=== PATIENT | male | born 1955 | race Caucasian/White ===

== ENCOUNTER 2016-05-02 10:13 | Day surgery (SDC) | payer MEDICARE ==
[2016-04-27 09:36] LABS: HEMATOCRIT 40.1 % (37.9-51.0); HEMOGLOBIN 13.7 g/dL (13.5-17.0); MEAN CORPUSCULAR HEMOGLOBIN 30.9 pg (27.0-33.4); MEAN CORPUSCULAR HGB CONC 34.1 g/dL (32.0-36.0); MEAN CORPUSCULAR VOLUME 91 fl (80-97); RED BLOOD COUNT 4.43 10^6/uL (4.35-5.55); RED CELL DISTRIBUTION WIDTH 13.1 % (11.5-14.0); WHITE BLOOD COUNT 6.1 10^3/uL (4.0-10.5)
[2016-04-27 09:58] LABS: ALANINE AMINOTRANSFERASE 44 U/L (21-72); ALBUMIN 3.9 g/dL (3.5-5.0); ALKALINE PHOSPHATASE 56 U/L (38-126); ANION GAP 12 (5-19); ASPARTATE AMINO TRANSFERASE 23 U/L (17-59); BILIRUBIN,TOTAL 0.4 mg/dL (0.2-1.3); BLOOD UREA NITROGEN 18 mg/dL (7-20); CALCIUM 9.9 mg/dL (8.4-10.2); CARBON DIOXIDE 26 mmol/L (22-30); CHLORIDE 102 mmol/L (98-107); CREATININE RESULT 0.83 mg/dL (0.52-1.25); GLUCOSE 109 mg/dL (75-110); POTASSIUM 4.8 mmol/L (3.6-5.0); SODIUM 140.4 mmol/L (137-145); TOTAL PROTEIN 6.3 g/dL (6.3-8.2)
--- NOTE | 2016-04-27 12:52 | EKG REPORT ---
SEVERITY:- ABNORMAL ECG - SINUS RHYTHM : Confirmed by: Luis Alberto Mera MD 27-Apr-2016 12:52:06
[~2016-05-02 10:13] MED LIST: CEFAZOLIN SODIUM 1 GM in DEXTROSE 5%-WATER 50 ML IV PRN; LACTATED RINGERS 1000 ML IV PRN; LIDOCAINE 0.5% INJ-PF (5 MG/ML) 50 ML SDV SUBCUT PRN
[2016-05-02] MEDS ORDERED: BUPIVACAINE HCL 0.25 % INJ/PF (2.5 MG/1 ML) 30 ML VIAL ONE (11:24)
[2016-05-02] MEDS ORDERED: ONDANSETRON HCL INJ/PF 4 MG/2 ML SDV ONE (12:26)
[2016-05-02] MEDS ORDERED: LIDOCAINE 2% INJ-PF (20 MG/ML) 10 ML AMPUL ONE (12:26)
[2016-05-02] MEDS ORDERED: METOCLOPRAMIDE HCL INJ/PF 10 MG/2 ML SDV ONE (12:26)
[2016-05-02] MEDS ORDERED: SUCCINYLCHOLINE CHLORIDE INJ 200 MG/10 ML VIAL ONE (12:26)
[2016-05-02] MEDS ORDERED: GLYCOPYRROLATE INJ 0.4 MG/2 ML VIAL ONE (12:26)
[2016-05-02] MEDS ORDERED: DEXAMETHASONE SOD PHOSPHATE INJ 4 MG/1 ML VIAL ONE (12:26)
[2016-05-02] MEDS ORDERED: ROCURONIUM BROMIDE INJ 50 MG/5 ML VIAL IV ONE (12:26)
[2016-05-02] MEDS ORDERED: PROPOFOL INJ 200 MG/20 ML VIAL IV ONE (14:32)
[2016-05-02] MEDS ORDERED: FENTANYL CITRATE INJ/PF 250 MCG/5 ML AMPULE ONE (14:32)
[2016-05-02] MEDS ORDERED: MIDAZOLAM 2 MG/2 ML INJ ONE (14:32)
[2016-05-02] MEDS ORDERED: ACETAMINOPHEN 100 ML IV ONE (14:33)
[2016-05-02] MEDS ORDERED: ACETAMINOPHEN 0 ML IV ONE (14:33)
[2016-05-02] MEDS ORDERED: DEXMEDETOMIDINE INJ 80 MCG/20 ML VIAL IV ONE (14:33)
[2016-05-02] MEDS ORDERED: EPHEDRINE SULFATE INJ 50 MG/1 ML AMPULE ONE (14:34)
[2016-05-02] MEDS ORDERED: PROMETHAZINE HCL INJ 25 MG/1 ML VIAL IV PRN ×2 (15:30)
[2016-05-02] MEDS ORDERED: MORPHINE SULFATE 10 MG/ML INJ IV PRN ×2 (15:30→15:51)
[2016-05-02] MEDS ORDERED: DIPHENHYDRAMINE HCL 50 MG/ML VIAL IV PRN (15:30)
[2016-05-02] MEDS ORDERED: FENTANYL CITRATE INJ/PF 100 MCG/2 ML AMPUL IV PRN ×3 (15:30)
[2016-05-02] MEDS ORDERED: ONDANSETRON HCL INJ/PF 4 MG/2 ML SDV IV PRN ×2 (15:30→15:51)
[2016-05-02] MEDS ORDERED: MEPERIDINE HCL/PF INJ 25 MG/1 ML DISP.SYRIN IV PRN (15:30)
--- NOTE | 2016-05-02 15:48 | Operative Report ---
Operative Report DATE OF SURGERY: 05/02/16 PREOPERATIVE DIAGNOSIS: Umbilical hernia POSTOPERATIVE DIAGNOSIS: Umbilical hernia OPERATION: Umbilical hernia repair SURGEON: ELVIS LANDA ANESTHESIA: GA TISSUE REMOVED OR ALTERED: Hernia sac excised but not submitted to pathology COMPLICATIONS: None ESTIMATED BLOOD LOSS: minimal INTRAOPERATIVE FINDINGS: 1.5 cm umbilical hernia fascial defect. PROCEDURE: Informed consent was obtained. Patient was brought to the operating room placed on the operating table in supine position. After satisfactory induction of general anesthesia patient's abdomen was prepped and draped in usual sterile fashion. Local anesthetic was injected. A semicircular infraumbilical incision was made dissection carries carried down the bellybutton was dissected off of the underlying hernia sac the hernia sac was entered revealing no incarcerated contents. The hernia sac was excised but not submitted to pathology. The fascial defect measured about 1.5 cm in size. Therefore primary repair was performed with Ethibond interrupted sutures. The repair came together well without tension. Hemostasis appeared excellent. The bellybutton was tacked to the underlying fascia using interrupted Vicryl sutures. Skin was closed with interrupted deep dermal Vicryl sutures followed by running subcuticular Monocryl suture. Patient tolerated procedure well with no apparent competitions and was taken to the recovery area in stable condition.
[2016-05-02] MEDS ORDERED: OXYCODONE-ACETAMINOPHEN 5-325 MG TABLET PO PRN (15:51)
[2016-05-02] MEDS ORDERED: RINGERS SOLUTION,LACTATED 1,000 ML IV PRN (15:51)
--- NOTE | 2016-05-02 15:51 | PDOC DISCHARGE SUMMARY ---
Discharge Summary (SDC) - Discharge Final Diagnosis: Umbilical hernia Date of Surgery: 05/02/16 Discharge Date: 05/02/16 Condition: Good Treatment or Instructions: Patient underwent umbilical hernia repair. May discharge patient home when met discharge criteria. Stay active at home but avoid strenuous activity. May shower in 2 days. Keep Steri-Strips on. Follow-up with me in 2 weeks. Prescriptions: Oxycodone HCl/Acetaminophen [Percocet 5-325 mg Tablet] 1 tab PO ASDIR PRN #25 tablet PRN Reason: Discharge Diet: As Tolerated Discharge Activity: Activity As Tolerated - Stay active but avoid strenuous activity. Report the Following to Your Physician Immediately: Fever over 101 Degrees, Unusual Bleeding, Redness, Drainage-Foul Smelling
[2016-05-02 18:36] VITALS: BP 146/83
== END 2016-05-02 18:25 | disposition home or self-care (01) ==
LOC: OROUT 10:13
PROVIDERS: ATTEND Surgery
PROC: 0WQF0ZZ Repair Abdominal Wall, Open Approach (ICD-10-PCS; principal; 2016-05-02 12:30)
DX: K42.9 Umbilical hernia without obstruction or gangrene (principal); K40.90 Unilateral inguinal hernia, without obstruction or gangrene, not specified as recurrent; I10 Essential (primary) hypertension; E78.00 Pure hypercholesterolemia, unspecified; M54.9 Dorsalgia, unspecified; G89.29 Other chronic pain; Z87.891 Personal history of nicotine dependence; Z79.899 Other long term (current) drug therapy; Z79.82 Long term (current) use of aspirin
CPT/HCPCS: 93005; 36415 ×2; 84132; 85027; 80053; 71020; 93010; 49585; J2250; J0690; J3490 ×4; J1100; J3010; J2765; J0330; J2405; J2704; J0131; 830

== ENCOUNTER → 2016-07-10 | Outpatient (CLI) | payer MEDICARE ==
[2016-07-10 09:09] LABS: ABSOLUTE EOSINOPHILS # (AUTO) 0.2 10^3/uL (0.0-0.6); ABSOLUTE LYMPHOCYTES (AUTO) 1.1 10^3/uL (0.5-4.7); ABSOLUTE MONOCYTES (AUTO) 0.5 10^3/uL (0.1-1.4); ABSOLUTE NEUT (AUTO) 2.8 10^3/uL (1.7-8.2); BASOPHILS % (AUTO) 0.4 % (0-2); EOSINOPHILS % (AUTO) 3.8 % (0-6); HEMATOCRIT 38.4 % (37.9-51.0); HEMOGLOBIN 13.4 g/dL (13.5-17.0); HGB HCT DIFFERENCE 1.8; LYMPHOCYTES % (AUTO) 23.9 % (13-45); MEAN CORPUSCULAR HEMOGLOBIN 31.2 pg (27.0-33.4); MEAN CORPUSCULAR VOLUME 89 fl (80-97); MONOCYTES % (AUTO) 11.6 % (3-13); RED CELL DISTRIBUTION WIDTH 12.9 % (11.5-14.0); SEGMENTED NEUTROPHILS % (AUTO) 60.3 % (42-78); WHITE BLOOD COUNT 4.6 10^3/uL (4.0-10.5)
[2016-07-10 09:15] LABS: APPEARANCE,URINE CLEAR; BILIRUBIN,URINE NEGATIVE (NEGATIVE); GLUCOSE, URINE NEGATIVE (NEGATIVE); KETONES,URINE NEGATIVE (NEGATIVE); LEUKOCYTE ESTERASE,URINE NEGATIVE (NEGATIVE); NITRITE,URINE NEGATIVE (NEGATIVE); PROTEIN,URINE NEGATIVE (NEGATIVE); URINE SPECIFIC GRAVITY 1.024; UROBILINOGEN,URINE NEGATIVE mg/dL (<2.0)
[2016-07-10 09:32] LABS: ALANINE AMINOTRANSFERASE 31 U/L (21-72); ALBUMIN 4.1 g/dL (3.5-5.0); ALKALINE PHOSPHATASE 54 U/L (38-126); ANION GAP 8 (5-19); ASPARTATE AMINO TRANSFERASE 23 U/L (17-59); BILIRUBIN,TOTAL 0.5 mg/dL (0.2-1.3); BLOOD UREA NITROGEN 20 mg/dL (7-20); CALCIUM 9.6 mg/dL (8.4-10.2); CARBON DIOXIDE 27 mmol/L (22-30); CHLORIDE 104 mmol/L (98-107); CHOLESTEROL 173.49 mg/dL (0-200); CREATININE RESULT 0.86 mg/dL (0.52-1.25); Direct HDL 46 mg/dL (>40); GLUCOSE 97 mg/dL (75-110); POTASSIUM 4.3 mmol/L (3.6-5.0); SODIUM 138.6 mmol/L (137-145); TOTAL PROTEIN 6.5 g/dL (6.3-8.2); TRIGLYCERIDES 93 mg/dL (<150)
[2016-07-10 09:43] LABS: DIRECT LDL 105 mg/dL (<100)
[2016-07-10 10:41] LABS: FOLATE > 20.00 ng/mL (>2.76)
== END ==
LOC: OD 08:22
DX: E78.5 Hyperlipidemia, unspecified (principal); D64.9 Anemia, unspecified; I10 Essential (primary) hypertension; Z79.899 Other long term (current) drug therapy; Z12.5 Encounter for screening for malignant neoplasm of prostate
CPT/HCPCS: 36415; 82607; 82728; 82746; 83540; 83550; 84443; 85025; 85045; 80053; 81001; 83036; 80061; G0103

== ENCOUNTER → 2018-02-21 | Outpatient (CLI) | payer MEDICARE | LOC: LAB 08:15 | PROVIDERS: ATTEND Internal Medicine | DX: R53.83 Other fatigue (principal); R79.89 Other specified abnormal findings of blood chemistry | CPT/HCPCS: 36415; 84443 ==

== ENCOUNTER → 2018-08-13 | Outpatient (CLI) | payer MEDICARE ==
[2018-08-13 07:37] LABS: ABSOLUTE EOSINOPHILS # (AUTO) 0.2 10^3/uL (0.0-0.6); ABSOLUTE LYMPHOCYTES (AUTO) 1.2 10^3/uL (0.5-4.7); ABSOLUTE MONOCYTES (AUTO) 0.6 10^3/uL (0.1-1.4); ABSOLUTE NEUT (AUTO) 3.2 10^3/uL (1.7-8.2); BASOPHILS % (AUTO) 0.6 % (0-2); EOSINOPHILS % (AUTO) 4.3 % (0-6); HEMATOCRIT 37.9 % (37.9-51.0); HEMOGLOBIN 13.4 g/dL (13.5-17.0); LYMPHOCYTES % (AUTO) 22.7 % (13-45); MEAN CORPUSCULAR HEMOGLOBIN 32.1 pg (27.0-33.4); MEAN CORPUSCULAR HGB CONC 35.5 g/dL (32.0-36.0); MEAN CORPUSCULAR VOLUME 90 fl (80-97); MONOCYTES % (AUTO) 11.2 % (3-13); PLATELET COUNT 295 10^3/uL (150-450); RED BLOOD COUNT 4.19 10^6/uL (4.35-5.55); RED CELL DISTRIBUTION WIDTH 13.3 % (11.5-14.0); SEGMENTED NEUTROPHILS % (AUTO) 61.2 % (42-78); TOTAL CELLS COUNTED % (AUTO) 100 %; WHITE BLOOD COUNT 5.3 10^3/uL (4.0-10.5)
[2018-08-13 08:01] LABS: APPEARANCE,URINE CLEAR; BILIRUBIN,URINE NEGATIVE (NEGATIVE); COLOR,URINE YELLOW; GLUCOSE, URINE NEGATIVE (NEGATIVE); KETONES,URINE NEGATIVE (NEGATIVE); LEUKOCYTE ESTERASE,URINE NEGATIVE (NEGATIVE); NITRITE,URINE NEGATIVE (NEGATIVE); PROTEIN,URINE NEGATIVE (NEGATIVE); URINE SPECIFIC GRAVITY 1.021; UROBILINOGEN,URINE NEGATIVE mg/dL (<2.0)
[2018-08-13 08:09] LABS: ALANINE AMINOTRANSFERASE 30 U/L (21-72); ALKALINE PHOSPHATASE 56 U/L (38-126); ASPARTATE AMINO TRANSFERASE 22 U/L (17-59); BILIRUBIN,DIRECT 0.2 mg/dL (0.0-0.4); BILIRUBIN,TOTAL 0.5 mg/dL (0.2-1.3); BLOOD UREA NITROGEN 25 mg/dL (7-20); CALCIUM 10.1 mg/dL (8.4-10.2); GLUCOSE 105 mg/dL (75-110); POTASSIUM 4.4 mmol/L (3.6-5.0); TOTAL PROTEIN 6.7 g/dL (6.3-8.2); TRIGLYCERIDES 118 mg/dL (<150)
[2018-08-13 08:17] LABS: CARBON DIOXIDE 26 mmol/L (22-30); CHLORIDE 106 mmol/L (98-107); SODIUM 137.1 mmol/L (137-145)
[2018-08-13 08:28] LABS: DIRECT LDL 116 mg/dL (<100)
[2018-08-13 08:51] LABS: ANION GAP 5 (5-19)
== END ==
LOC: LAB 07:15
PROVIDERS: ATTEND Internal Medicine
DX: I10 Essential (primary) hypertension (principal); E78.5 Hyperlipidemia, unspecified; N40.0 Benign prostatic hyperplasia without lower urinary tract symptoms; R53.83 Other fatigue
CPT/HCPCS: 36415; 80053; 80061; 81001; 84153; 84443; 85025

== ENCOUNTER → 2018-09-06 | Outpatient (CLI) | payer MEDICARE ==
--- NOTE | 2018-09-06 15:20 | RADIOLOGY REPORT (SQ) ---
EXAM DESCRIPTION: CT ABD/PELVIS WITH IV ORAL COMPLETED DATE/TIME: 09/06/2018 2:21 pm REASON FOR STUDY: K57.92 DVTRCLI OF INTEST, PART UNSP, W/O PERF OR ABSCESS W/O BLEED K57.92 DVTRCLI OF INTEST, PART UNSP, W/O PERF OR ABSCESS W/O COMPARISON: 2015 TECHNIQUE: CT scan of the abdomen and pelvis performed using helical scanning technique with dynamic intravenous contrast injection. Patient drank oral contrast. Images reviewed with lung, soft tissue , and bone windows. Reconstructed coronal and sagittal MPR images reviewed. Delayed images for evalua tion of the urinary system also acquired. All images stored on PACS. All CT scanners at this facility use dose modulation, iterative reconstruction, and/or weight based d osing when appropriate to reduce radiation dose to as low as reasonably achievable (ALARA). [facility]: Dose Right [facility]: CareDose [facility]: Dose Right [facility]: Teradose 4D [facility]: ClubLocal CONTRAST TYPE AND DOSE: contrast/concentration: Isovue 350.00 mg/ml; Total Contrast Delivered: 100.0 ml; Total Saline Delivered: 72.0 ml RENAL FUNCTION: Creatinine 0.9 RADIATION DOSE: CT Rad equipment meets quality standard of care and radiation dose reduction techniq ues were employed. CTDIvol: 14.1 - 16.3 mGy. DLP: 1682 mGy-cm.. LIMITATIONS: None. FINDINGS: LOWER CHEST: No significant findings. No nodules or infiltrates. LIVER: Normal size. No masses. No dilated ducts. SPLEEN: Normal size. No focal lesions. PANCREAS: No masses. No significant calcifications. No adjacent inflammation or peripancreatic fluid collections. Pancreatic duct not dilated. GALLBLADDER: No identified stones by CT criteria. No inflammatory changes to suggest cholecystitis. ADRENAL GLANDS: No significant masses or asymmetry. RIGHT KIDNEY AND URETER: No solid masses. 5 mm right upper and lower pole intrarenal nonobstructive stone. No hydronephrosis or hydroureter. LEFT KIDNEY AND URETER: No solid masses. 2 cm left upper pole renal cortical cyst. 5 mm left upper pole intrarenal nonobstructive stone. No hydronephrosis or hydroureter. AORTA AND VESSELS: No aneurysm. No dissection. Renal arteries, SMA, celiac without stenosis. RETROPERITONEUM: No retroperitoneal adenopathy, hemorrhage or masses. BOWEL AND PERITONEAL CAVITY: No masses or inflammatory changes. No free fluid or peritoneal masses. Patient drank oral contrast. No CT evidence of bowel obstruction or free intraperitoneal air or flui d. APPENDIX: Normal. PELVIS: No mass. No free fluid. Normal bladder. ABDOMINAL WALL: No masses. Fatty right inguinal hernia. BONES: No significant or acute findings. OTHER: Dorsal column stimulator over the lower thoracic spine IMPRESSION: NO SIGNIFICANT OR ACUTE FINDING IN THE ABDOMEN OR PELVIS ON CT SCAN WITH IV CONTRAST. TECHNICAL DOCUMENTATION: JOB ID: [id number] Quality ID # [id number]: Final reports with documentation of one or more dose reduction techniques (e.g., Au tomated exposure control, adjustment of the mA and/or kV according to patient size, use of iterative reconstruction technique) 2010 [employer]- All Rights Reserved Reading location - IP/workstation name: [email or web address]
== END ==
LOC: RAD 13:35
PROVIDERS: ATTEND Family Medicine
DX: K57.92 Diverticulitis of intestine, part unspecified, without perforation or abscess without bleeding (principal)
CPT/HCPCS: 74177

== ENCOUNTER 2019-09-30 20:03 | Emergency (ER) | payer MEDICARE ==
[2019-09-30] MEDS ORDERED: HYDROCODONE/ACETAMINOPHEN 5-325 MG TABLET PO ONE (20:29)
--- NOTE | 2019-09-30 20:31 | ER Document Report ---
ED Medical Screen (RME) - General Chief Complaint: Testicular Pain Stated Complaint: GROIN/BACK PAIN Time Seen by Provider: 09/30/19 20:25 Primary Care Provider: ELISA GU MD [Primary Care Provider] - Follow up as needed Mode of Arrival: Ambulatory Information source: Patient Notes: HPI; 64-year-old male presents to the emergency room complaining of left groin pain that radiates into his left testicle and to his left flank area. Pain for 2 days. Was seen earlier today at [facility] negative urine. Sent to ED for ultrasound. Denies any urinary symptoms. No history of kidney stones. PE: Alert and oriented x3. Moderate distress noted. Lungs clear to auscultation without rales rhonchi wheezes. Heart regular rate and rhythm without murmurs rubs or gallops. I have greeted and performed a rapid initial assessment of this patient. A comprehensive ED assessment and evaluation of the patient, analysis of test results and completion of the medical decision making process will be conducted by additional ED providers. I have specifically instructed the patient or family members with the patient to immediately return to any nursing staff should anything change in the patient's condition or with their chief complaint. TRAVEL OUTSIDE OF THE [place] IN LAST 30 DAYS: No - Related Data Allergies/Adverse Reactions: No Known Allergies Allergy (Verified 04/27/16 09:59) Home Medications: cymbalta, ibuprofen, atorvastatin, lipitor, mvi, low dose asa Past Medical History - Past Medical History Cardiac Medical History: Reports: Hx Hypertension Denies: Hx Coronary Artery Disease, Hx Heart Attack Pulmonary Medical History: Denies: Hx Asthma, Hx Bronchitis, Hx COPD, Hx Pneumonia Neurological Medical History: Denies: Hx Cerebrovascular Accident, Hx Seizures GI Medical History: Reports: Hx Ulcer - Ulcer 40 years ago Musculoskeltal Medical History: Reports Hx Arthritis Past Surgical History: Reports: Hx Appendectomy, Hx Orthopedic Surgery - Left wrist carpal tunnel surgery.. Denies: Hx Pacemaker - Immunizations Hx Diphtheria, Pertussis, Tetanus Vaccination: Yes Physical Exam - Vital signs Vitals: Temp Pulse Resp BP Pulse Ox 98.2 F 63 18 141/76 H 97 09/30/19 20:17 09/30/19 20:17 09/30/19 20:17 09/30/19 20:17 09/30/19 20:17 Course - Vital Signs Vital signs: Temp Pulse Resp BP Pulse Ox 98.2 F 63 18 141/76 H 97 09/30/19 20:21 09/30/19 20:17 09/30/19 20:17 09/30/19 20:17 09/30/19 20:17 Doctor's Discharge - Discharge Referrals: ELISA GU MD [Primary Care Provider] - Follow up as needed
--- NOTE | 2019-09-30 21:43 | ER Document Report ---
ED GI/ - General Chief Complaint: Testicular Pain Stated Complaint: GROIN/BACK PAIN Time Seen by Provider: 09/30/19 20:25 Primary Care Provider: [facility] [Provider Group] - Follow up as needed Mode of Arrival: Ambulatory Notes: Patient is a 64-year-old male that comes to the emergency department for chief complaint of pain to the left groin area. Pain does radiate down his left testicle and slightly up into the abdomen. He also states that sometimes he feels the pain in his back but not severely. He denies history of kidney stones, dysuria, hematuria, injury to the area, or obvious swelling to the area. He has had umbilical hernia repair but never inguinal hernia problems. He denies fever/chills, abnormal bowel movements, or any other complaints. Past medical history of hypertension, hyperlipidemia, chronic back pain but not on narcotic pain management. TRAVEL OUTSIDE OF THE [place] IN LAST 30 DAYS: No - Related Data Allergies/Adverse Reactions: No Known Allergies Allergy (Verified 04/27/16 09:59) Home Medications: cymbalta, ibuprofen, atorvastatin, lipitor, mvi, low dose asa Past Medical History - General Information source: Patient - Social History Smoking Status: Former Smoker Frequency of alcohol use: None Drug Abuse: None Lives with: Family Family History: Reviewed & Not Pertinent Patient has homicidal ideation: No - Past Medical History Cardiac Medical History: Reports: Hx Hypertension Denies: Hx Coronary Artery Disease, Hx Heart Attack Pulmonary Medical History: Denies: Hx Asthma, Hx Bronchitis, Hx COPD, Hx Pneumonia Neurological Medical History: Denies: Hx Cerebrovascular Accident, Hx Seizures GI Medical History: Reports: Hx Ulcer - Ulcer 40 years ago Musculoskeletal Medical History: Reports Hx Arthritis Past Surgical History: Reports: Hx Appendectomy, Hx Orthopedic Surgery - Left wrist carpal tunnel surgery.. Denies: Hx Pacemaker - Immunizations Hx Diphtheria, Pertussis, Tetanus Vaccination: Yes Hx Pneumococcal Vaccination: 03/30/16 Review of Systems - Review of Systems Constitutional: No symptoms reported EENT: No symptoms reported Cardiovascular: No symptoms reported Respiratory: No symptoms reported Gastrointestinal: See HPI Genitourinary: See HPI Male Genitourinary: See HPI Musculoskeletal: No symptoms reported Skin: No symptoms reported Hematologic/Lymphatic: No symptoms reported Neurological/Psychological: No symptoms reported Physical Exam - Vital signs Vitals: Temp Pulse Resp BP Pulse Ox 98.2 F 63 18 141/76 H 97 09/30/19 20:17 09/30/19 20:17 09/30/19 20:17 09/30/19 20:17 09/30/19 20:17 - Notes Notes: GENERAL: Alert, interacts well. No acute distress. HEAD: Normocephalic, atraumatic. EYES: Pupils equal, round, and reactive to light. Extraocular movements intact. ENT: Oral mucosa moist, tongue midline. Oropharynx unremarkable. Airway patent. LUNGS: Clear to auscultation bilaterally, no wheezes, rales, or rhonchi. No respiratory distress. Non-tender chest wall. HEART: Regular rate and rhythm. No murmur ABDOMEN: Soft, non-tender. Non-distended. Bowel sounds present in all 4 quadrants. GENITOURINARY: No tenderness over the scrotum or testicular tenderness noted. Normal cremasteric reflex. No erythema or discoloration. No rash. No bleeding or discharge., The posterior aspect on the left at the inguinal canal there is questionable minimal tenderness but no bulging, swelling, or significant tenderness. This is also not specifically reproducible on recheck. Exam performed with JOVANY Vasquez at bedside. EXTREMITIES: Moves all 4 extremities spontaneously. No edema, normal radial and dorsalis pedis pulses bilaterally. No cyanosis. BACK: no cervical, thoracic, lumbar midline tenderness. No saddle anesthesia, normal distal neurovascular exam. Moves all extremities in full range of motion. NEUROLOGICAL: Alert and oriented x3. Normal speech. Cranial nerves II through XII grossly intact. Strength 5/5 in all extremities. PSYCH: Normal affect, normal mood. SKIN: Warm, dry, normal turgor. No rashes or lesions noted. Course - Re-evaluation Re-evalutation: Patient has no testicular swelling, tenderness, or concerning findings on exam. Normal cremasteric reflex, no evidence of torsion. Abdominal exam is completely benign with no hernia or tenderness noted. There is questionable minimal tenderness in the right inguinal area however, this is nonspecific or reproducible, no reducible hernia noted. No erythema or skin or normality noted. Ultrasound does show small fat-containing inguinal hernia bilaterally, small c ysts, hydrocele. Normal blood flow, no other concerning findings noted with the scrotal exam. Patient reports he just had a normal urinalysis earlier today, this was deferred. On my reevaluation patient is asymptomatic. I discussed findings, patient referred to surgical clinic after discussion. Discussed return precautions in detail. Patient states appreciation and agreement. Stable and well-appearing at time of discharge. - Vital Signs Vital signs: Temp Pulse Resp BP Pulse Ox 98.2 F 65 18 136/72 H 99 09/30/19 22:58 09/30/19 22:58 09/30/19 22:58 09/30/19 22:58 09/30/19 22:58 Discharge - Discharge Clinical Impression: Left groin pain Condition: Stable Disposition: HOME, SELF-CARE Additional Instructions: Based on your examination and your work-up your pain appears to be coming from the hernia into the groin, this is called an inguinal hernia. No other concerning findings are seen. Please follow-up with the surgical clinic for additional management and treatment of this. You have been provided with pain medication to take only if needed, if you do so also take a stool softener, however return to the emergency department if you develop severe pain, redness or swelling to the area, vomiting, fever, or any other concerning or worsening symptoms. Prescriptions: Polyethylene Glycol 3350 [Miralax Powder 17 gm/Packet] 1 packet PO DAILY PRN #1 pkg PRN Reason: Oxycodone HCl/Acetaminophen [Percocet 5-325 mg Tablet] 1 - 2 tab PO TID PRN #12 tablet PRN Reason: Referrals: [facility] [Provider Group] - Follow up as needed
--- NOTE | 2019-09-30 22:03 | RADIOLOGY REPORT (SQ) ---
EXAM DESCRIPTION: Bilateral testicular ultrasound CLINICAL HISTORY: 64 years Male; groin pain/ testicular pain TECHNIQUE: Vazquez-scale, color, and spectral Doppler images were obtained of the testes and scrotum. COMPARISON: CT scan of the abdomen and pelvis 09/06/2018 FINDINGS: Right testicle: The testicle measures 3.7 x 2.6 x 2.4 cm. Echogenicity is normal. Blood flow is present throughout and is prominent. A moderate simple hydrocele is identified. The largest fluid collection measures 3.9 x 1.4 x 4.0 cm with a volume of 11 mL. Prominent veins are seen in the scrotal sac which measure 2 mm in diameter. A small focal calcification is present in the scrotum. In the right inguinal region is a sliding hiatal hernia containing fat. The defect measures 10.4 mm in diameter. This was present on the previous CT scan The epididymis measures 1.0 x 0.8 x 1.0 cm and contains a simple cyst which measures 6 mm. Several other smaller cysts are seen.. Left testicle: The testicle measures 4.0 x 2.6 x 3.0 cm with normal echogenicity. Blood flow is present but prominent. The epididymis measures 1.9 x 2.1 x 3.3 cm and contains several cysts. The two largest measure 1.6 x 1.7 x 1.5 cm and the second measures 1.9 x 2.0 x 1.9 cm. A mildly complex hydrocele is noted which contains debris. The volume is 12 mL. In the inguinal canal is a fat-containing hernia with a defect measuring 17 mm. Small lymph nodes are identified.. IMPRESSION: 1. Bilateral inguinal hernias containing fat. 2. Bilateral epididymal head cysts left greater than right. 3. Small hydroceles bilaterally. 4. Normal-appearing testicles. Epididymal head cysts are seen left more so than right.
[2019-09-30] MEDS ORDERED: OXYCODONE HCL IR 5 MG TABLET PO ONE (22:30)
[2019-09-30 23:07] VITALS: BP 136/72
== END 2019-09-30 22:58 | disposition home or self-care (01) ==
LOC: ER 20:03
DX: N50.812 Left testicular pain (principal); R10.9 Unspecified abdominal pain; I10 Essential (primary) hypertension
CPT/HCPCS: 99284; 76870; 93976; A9270 ×2

== ENCOUNTER 2019-11-25 05:23 | Day surgery (SDC) | payer MEDICARE ==
[2019-11-20 11:04] LABS: HEMOGLOBIN 14.5 g/dL (13.5-17.0); MEAN CORPUSCULAR HEMOGLOBIN 31.8 pg (27.0-33.4); MEAN CORPUSCULAR HGB CONC 34.6 g/dL (32.0-36.0); MEAN CORPUSCULAR VOLUME 92 fl (80-97); PLATELET COUNT 294 10^3/uL (150-450); RED BLOOD COUNT 4.57 10^6/uL (4.35-5.55); RED CELL DISTRIBUTION WIDTH 13.7 % (11.5-14.0); WHITE BLOOD COUNT 4.8 10^3/uL (4.0-10.5)
--- NOTE | 2019-11-20 11:22 | RADIOLOGY REPORT (SQ) ---
EXAM DESCRIPTION: CHEST PA/LATERAL IMAGES COMPLETED DATE/TIME: 11/20/2019 10:21 am REASON FOR STUDY: PRE OP, COUGH COMPARISON: 04/27/2016 EXAM PARAMETERS: NUMBER OF VIEWS: two views TECHNIQUE: Digital Frontal and Lateral radiographic views of the chest acquired. RADIATION DOSE: NA LIMITATIONS: none FINDINGS: LUNGS AND PLEURA: No opacities, masses or pneumothorax. No pleural effusion. MEDIASTINUM AND HILAR STRUCTURES: No masses or contour abnormalities. HEART AND VASCULAR STRUCTURES: Heart normal size. No evidence for failure. BONES: No acute findings. HARDWARE: Stable position of thoracic neurostimulator. OTHER: No other significant finding. IMPRESSION: NO SIGNIFICANT RADIOGRAPHIC FINDING IN THE CHEST. TECHNICAL DOCUMENTATION: JOB ID: [id number] 2010 [employer]- All Rights Reserved Reading location - IP/workstation name: [email or web address]
[2019-11-20 11:43] LABS: ANION GAP 8 (5-19); BLOOD UREA NITROGEN 25 mg/dL (7-20); CALCIUM 10.4 mg/dL (8.4-10.2); CARBON DIOXIDE 27 mmol/L (22-30); CHLORIDE 101 mmol/L (98-107); GLUCOSE 107 mg/dL (75-110)
--- NOTE | 2019-11-21 01:16 | EKG REPORT ---
SEVERITY:- NORMAL ECG - SINUS RHYTHM : Confirmed by: Mario Allen 21-Nov-2019 01:15:27
[~2019-11-25 05:23] MED LIST changes: +ACETAMINOPHEN 325 MG TABLET PO PRN; +CEFAZOLIN 2 GM/D5W RTU 2 GM/50 ML RTUPB IV PRN; -CEFAZOLIN SODIUM 1 GM in DEXTROSE 5%-WATER 50 ML IV PRN; +IBUPROFEN 800 MG in NORMAL SALINE 250 ML IV PRN; +RINGERS SOLUTION,LACTATED 1,000 ML IV PRN
[2019-11-25] MEDS ORDERED: ACETAMINOPHEN 325 MG TABLET ONE (05:29)
[2019-11-25] MEDS ORDERED: CEFAZOLIN 2 GM/D5W RTU 2 GM/50 ML RTUPB IV ONE (05:29)
[2019-11-25] MEDS ORDERED: FENTANYL CITRATE INJ/PF 250 MCG/5 ML AMPULE ONE (06:39)
[2019-11-25] MEDS ORDERED: MIDAZOLAM 2 MG/2 ML INJ ONE (06:39)
[2019-11-25] MEDS ORDERED: FENTANYL CITRATE INJ/PF 100 MCG/2 ML AMPUL ONE (06:39)
[2019-11-25] MEDS ORDERED: PROPOFOL INJ 200 MG/20 ML VIAL IV ONE (06:40)
[2019-11-25] MEDS ORDERED: DIPHENHYDRAMINE HCL 50 MG/ML VIAL IV PRN (08:18)
[2019-11-25] MEDS ORDERED: MEPERIDINE HCL/PF INJ 25 MG/1 ML DISP.SYRIN IV PRN (08:18)
[2019-11-25] MEDS ORDERED: FENTANYL CITRATE INJ/PF 100 MCG/2 ML AMPUL IV PRN ×3 (08:18)
[2019-11-25] MEDS ORDERED: OXYCODONE-ACETAMINOPHEN 5-325 MG TABLET PO PRN ×2 (08:18)
[2019-11-25] MEDS ORDERED: BUPIVACAINE HCL 0.25 % INJ/PF (2.5 MG/1 ML) 30 ML VIAL ONE (08:37)
[2019-11-25] MEDS ORDERED: EPHEDRINE SULFATE INJ 50 MG/1 ML AMPULE ONE (08:50)
--- NOTE | 2019-11-25 10:06 | Discharge Summary ---
Discharge Summary (SDC) - Discharge Final Diagnosis: #1 right-sided direct inguinal hernia. 2. Left-sided indirect inguinal hernia Date of Surgery: 11/25/19 Discharge Date: 11/25/19 Condition: Stable Treatment or Instructions: Discharge home. Diet as tolerated. Activity: No lifting greater than 10 pounds x 4 weeks. Follow-up with [facility] in 7 to 10 days. Makinen 10/ 2 5 mg p.o. every 6 hours as needed for pain. Okay to shower on . No tub baths or swimming pools x2 weeks. Referrals: SHWETA WOLF FNP [Primary Care Provider] - Discharge Diet: As Tolerated Respiratory Treatments at Home: Deep Breathing/Coughing, Incentive Spirometer Discharge Activity: No Lifting Over 10 Pounds, No Lifting/Push/Pulling Home Care Assistance: None Needed Report the Following to Your Physician Immediately: Shortness of Breath, Nausea, Vomiting, Increase in Pain, Fever over 101 Degrees, Unusual Bleeding, Redness
--- NOTE | 2019-11-25 10:18 | Operative Report ---
Nonrecallable Operative Report DATE OF SURGERY: 11/25/19 PREOPERATIVE DIAGNOSIS: Bilateral inguinal hernia, symptomatic POSTOPERATIVE DIAGNOSIS: 1. Right-sided direct inguinal hernia. 2. Left-sided indirect inguinal hernia OPERATION: Bilateral robot-assisted laparoscopic inguinal hernia repair with mesh. SURGEON: POONAM MCGUIRE ULTRASONIC TESTER: RUPINDER MOSQUEDA ANESTHESIA: GA TISSUE REMOVED OR ALTERED: None COMPLICATIONS: None apparent ESTIMATED BLOOD LOSS: Minimal PROCEDURE: Drains/implants: Large right and left 3 DMax inguinal hernia mesh. Procedure detail: After informed consent was obtained, the patient was brought to the operating room and laid in the supine position. The area of the abdomen was prepped and draped in a normal sterile fashion. A supraumbilical incision was created with a 15 blade scalpel. Dissection was carried through the subcutaneous tissues using sharp and blunt dissection. The linea alba fascia was incised sharply, the abdomen was entered sharply. The balloon trocar was inserted, and pneumoperitoneum was achieved. Two 8 mm robotic trochars were placed in the right and left lateral abdominal wall under direct laparoscopic visualization. The robot was then brought up the patient and docked appropriately. I then assumed my position at the surgeon's console. Attention was turned to the right groin. A direct inguinal hernia defect was easily evident. An incision in the peritoneum was created 2 cm superior to the inguinal hernia defect. A preperitoneal dissection was then undertaken using sharp dissection, electrocautery, and blunt dissection. The hernia sac was freed from the direct hernia defect. The cord structures were freed from the peritoneum, using great care so as not to injure the cord structures. Once the preperitoneal space was free of any adhesion, the direct defect was closed using 2-0 V lock nonabsorbable suture. Next, a large right-sided 3D max inguinal hernia mesh was placed in the preperitoneal space. It was sutured medially and superiorly using 2-0 Vicryl suture. The mesh was then found to lie in good position. Once this was completed, the peritoneum was closed using 2-0 absorbable V Lock suture in simple running fashion. Attention was then turned to the left groin. The peritoneum was opened 2 cm superior to the indirect inguinal hernia defect on the left. A dissection was carried out in the preperitoneal space using sharp dissection, blunt dissection, and electrocautery. The indirect inguinal hernia had a lipoma of the cord associated with it. This lipoma of the cord was reduced into the abdominal cavity. Next the hernia sac was freed from the cord structures. This was done with great care, so as not to injure the cord structures. Once the preperitoneal space was fully opened, a large left-sided 3D max inguinal hernia mesh was placed into the preperitoneal space. It was s utured to the anterior abdominal wall medially and superiorly using 2-0 Vicryl suture. Once this was completed, the mesh was found to lie in good place. The peritoneum was then closed using 2-0 absorbable V lock suture in simple running fashion. The repairs were then inspected. They were found to be in good order. The robot was then undocked, and I scrubbed back into the case. The trochars were removed, and the supraumbilical fascia was closed with an 0 Vicryl suture in [id number] fashion. The overlying skin was closed in 4-0 Vicryl repeat suture in subcuticular fashion. Dressings were placed, and the procedure was concluded. All sponge, instrument, needle counts were correct x2. Condition: Stable. Rupinder Mosqueda PA-C was scrubbed and present the entirety of the procedure. She assisted with all portions the procedure including opening the abdomen, placement of the trochars, docking of the robot, exchanging the robotic instruments, closure of the fascia, and closure of the skin.
[2019-11-25] MEDS ORDERED: OXYCODONE-ACETAMINOPHEN 5-325 MG TABLET ONE (10:30)
[2019-11-25] MEDS ORDERED: ONDANSETRON HCL INJ/PF 4 MG/2 ML SDV ONE ×2 (10:30→12:51)
[2019-11-25 11:59] VITALS: BP 132/81
[2019-11-25] MEDS ORDERED: SUCCINYLCHOLINE CHLORIDE INJ 200 MG/10 ML VIAL ONE (12:51)
[2019-11-25] MEDS ORDERED: ROCURONIUM BROMIDE INJ 50 MG/5 ML VIAL IV ONE (12:51)
[2019-11-25] MEDS ORDERED: PHENYLEPHRINE HCL INJ/PF 10 MG/1 ML SDV ONE (12:51)
[2019-11-25] MEDS ORDERED: NEOSTIGMINE METHYLSULFATE 10 MG/10 ML VIAL ONE (12:51)
[2019-11-25] MEDS ORDERED: GLYCOPYRROLATE 1 MG/5 ML VIAL ONE (12:51)
[2019-11-25] MEDS ORDERED: DEXAMETHASONE SOD PHOSPHATE INJ 4 MG/1 ML VIAL ONE (12:51)
[2019-11-25] MEDS ORDERED: LIDOCAINE 2% INJ-PF (20 MG/ML) 2 ML AMPUL ONE (12:51)
== END 2019-11-25 12:00 | disposition home or self-care (01) ==
LOC: OROUT 05:23
PROVIDERS: ATTEND Surgery
DX: K40.20 Bilateral inguinal hernia, without obstruction or gangrene, not specified as recurrent (principal); D64.9 Anemia, unspecified; I10 Essential (primary) hypertension; E78.00 Pure hypercholesterolemia, unspecified; Z87.891 Personal history of nicotine dependence; Z79.899 Other long term (current) drug therapy; Z79.82 Long term (current) use of aspirin; Z03.818 Encounter for observation for suspected exposure to other biological agents ruled out
CPT/HCPCS: 49650; S2900; 36415; 71046; 80048; 840; 85027; 87635; 93005; 93010; C1758; C1781; C9803; J0330; J0690; J1100; J1741; J2250; J2370; J2405; J2704; J2710; J3010; J3490; J7050